=== PATIENT | male | born 1985 | race Two or more races ===

== ENCOUNTER 2021-04-27 20:51 | Emergency (ER) | payer MEDICAID, OTHER ==
[~2021-04-27] VITALS: Ht 172.7 cm; Wt 77.1 kg
[2021-04-27 21:18] VITALS: BP 139/93
== END 2021-04-27 23:25 | disposition short-term general hospital (02) ==
LOC: EDBD 20:51 → ER 20:54
DX: R51.9 Headache, unspecified (principal); R07.89 Other chest pain; V43.52XA Car driver injured in collision with other type car in traffic accident, initial encounter; Y93.89 Activity, other specified; Y92.89 Other specified places as the place of occurrence of the external cause; Y99.8 Other external cause status
CPT/HCPCS: 71045; 93005; 99285; J7030; L0120